=== PATIENT | male | born 1955 | race Caucasian/White ===

== ENCOUNTER 2016-11-17 08:04 | Emergency (ER) | payer BC ==
[~2016-11-17] VITALS: Ht 170.2 cm; Wt 81.9 kg
[~2016-11-17 08:04] MED LIST: TAB-TAB PO
[2016-11-17 08:08] VITALS: BP 142/84; PULSE 67; RESP 16; TEMP 98; O2SAT 98
--- NOTE | 2016-11-17 08:36 | PD ---
HPI Chief Complaint: Bite or Sting Time Seen by Provider: 08:14 Travel History International Travel<30 days: No Contact w/Intl Traveler<30days: No Traveled to known affect area: No History of Present Illness HPI This 61-year-old male is complaining of pain in his right fourth finger. He says that about 2 weeks ago he was playing with his dog and the dog just nicked the back of his finger. He has had some pain and swelling since. He works in [employer] and has continued to work. He says he has banged the finger multiple times He has noted some swelling of the finger which seems worse today PFSH Past Medical History Cancer: No Diabetes: No Glaucoma: No Hepatitis: No Hiatal Hernia: No Hypertension: No Thyroid Disease: No Past Surgical History Pacemaker: No Social History Alcohol Use: No Tobacco Use: No Allergies-Medications (Allergen,Severity, Reaction): Coded Allergies: No Known Allergies (Verified , 11/17/16) Reported Meds & Prescriptions Reported Meds & Active Scripts Active No Active Prescriptions or Reported Medications Review of Systems General / Constitutional: No: Fever, Chills Eyes: No: Diploplia HENT: No: Headaches Cardiovascular: No: Chest Pain or Discomfort, Palpitations Respiratory: No: Cough, Shortness of Breath Gastrointestinal: No: Vomiting, Diarrhea Genitourinary: No: Urgency, Frequency Musculoskeletal: No: Myalgias Skin: Positive Rash Endocrine: No: Heat Intolerance, Cold Intolerance Hematologic/Lymphatic: No: Easy Bruising Physical Exam Narrative GENERAL: Well-developed male SKIN: Focused skin assessment warm/dry. HEAD: Atraumatic. Normocephalic. EYES: Pupils equal and round. No scleral icterus. No injection or drainage. ENT: No nasal bleeding or discharge. Mucous membranes pink and moist. NECK: Trachea midline. No JVD. MUSCULOSKELETAL: No obvious deformities. No clubbing. No cyanosis. No edema. Right fourth finger as he affected finger. There is a small puncture on the back of the finger overlying the middle phalanx. There is some mild swelling of the finger. He has restricted flexion. There is a healed wound on the volar aspect of the finger without any evidence of infection. There is some mild diffuse swelling of the finger. NEUROLOGICAL: Awake and alert. No obvious cranial nerve deficits. Motor grossly within normal limits. Normal speech. PSYCHIATRIC: Appropriate mood and affect; insight and judgment normal. Data Data Last Documented VS Vital Signs Date Time Temp Pulse Resp B/P Pulse Ox O2 Delivery O2 Flow Rate FiO2 11/17/16 08:08 98.0 67 16 142/84 98 Orders Finger ([id number]) (11/17/16 08:18) MDM Medical Decision Making Medical Screen Exam Complete: Yes Emergency Medical Condition: Yes Medical Record Reviewed: Yes Differential Diagnosis Differential includes infected dog bite, Narrative Course This is atypical in that the dog bite occurred 2 weeks ago however the patient says he has banged repeatedly. He does have some swelling and tenderness. There is no drainable abscess. She will be put on Augmentin Diagnosis Primary Impression: Infected dog bite of hand Qualified Code: S61.451A - Infected dog bite of hand, right, initial encounter Scripts Amoxicillin-Clavulanate (Augmentin)500-125 mg [id number] Mg PO Q8H #21 TAB Ref 0 Prov:Maykel Nelson MD 11/17/16 Disposition: 01 DISCHARGE HOME Condition: Stable Maykel Nelson MD Nov 17, 2016 08:36
--- NOTE | 2016-11-17 09:17 | RADRPT ---
EXAM DATE/TIME: 11/17/2016 08:32 [facility] COMPARISON: No previous studies available for comparison. INDICATIONS : Right 4th digit pain & swelling due to dog bite approximately 2 weeks ago. MEDICAL HISTORY : None. SURGICAL HISTORY : Laminectomy. Excision of cyst left wrist. ENCOUNTER: Initial ACUITY: 2 weeks PAIN SCORE: 8/10 LOCATION: Right hand 4th digit FINDINGS: Examination of the fourth digit of the right hand demonstrates no evidence of fracture or dislocation . There is a curvilinear lucent line seen along the lateral proximal aspect of the fourth tuft which is thought to be a mach effect from the overlying nail. A fracture is not seen. No radiopaque foreig n bodies are seen. The soft tissues are intact. CONCLUSION: No acute disease. Costa Cohen MD on November 17, 2016 at 9:08 Board Certified Radiologist. This report was verified electronically.
[2016-11-17] MEDS ORDERED: AUGM500T7 PO (09:28)
== END 2016-11-17 09:45 | disposition home or self-care (01) ==
LOC: PHED 08:04
DX: S61.254A Open bite of right ring finger without damage to nail, initial encounter (principal); L08.9 Local infection of the skin and subcutaneous tissue, unspecified; W54.0XXA Bitten by dog, initial encounter; Y93.K9 Activity, other involving animal care; Y92.9 Unspecified place or not applicable; Y99.8 Other external cause status
CPT/HCPCS: 73140; 99283